=== PATIENT | female | born 1995 | race Caucasian/White ===

== ENCOUNTER 2021-06-22 16:05 | Observation (INO) | payer OTHER, SELFPAY ==
[2021-06-22 16:35] VITALS: RESP 18; TEMP 36.6
[2021-06-22 16:36] VITALS: BP 121/74; PULSE 100
--- NOTE | 2021-06-22 16:46 | OBADM ---
This patient, Mor Dia, admitted to the OB room [facility] Post [facility] for observation. Patient/family oriented to hospital policies and general routines including ID bracelet, bed and alarms, visiting hours, pain management, procedures, bathroom and other care routines, personal items, smoking policy, room service/diet, and visiting hours. Patient/Family are encouraged to report perceived risks to care and to ask questions if they do not understand what they are told or what they should do.
[2021-06-22 16:50] VITALS: BMI 32.0
--- NOTE | 2021-07-09 21:46 | PM.OBTRLD ---
OB - Triage/Final Diagnosis Visit Information Comments/Additional reasons for admission: I have assessed the risk for this patient, Mor Dia, and determined that she would benefit from observation care. Final Diagnosis (1) False labor: Code(s): O47.9 - False labor, unspecified Status: Acute
== END 2021-06-22 17:53 | disposition home or self-care (01) ==
PROVIDERS: Admitting Provider Obstetrics & Gynecology; Visit Provider Obstetrics & Gynecology
DX: O47.03 False labor before 37 completed weeks of gestation, third trimester (principal); Z3A.32 32 weeks gestation of pregnancy
CPT/HCPCS: 84112; G0378; G0379

== ENCOUNTER 2021-06-28 16:40 | Observation (INO) | payer OTHER, SELFPAY ==
[2021-06-28] VITALS (39 sets, daily range): BP systolic 104–121; BP diastolic 57–73; PULSE 39–141; RESP 16; TEMP 36.4; O2SAT 80–100; BMI 35.3
--- NOTE | ~2021-06-28 | XR_ITS ---
EXAMINATION: XR chest 1V portable INDICATION: Shortness of breath and fever TECHNIQUE: Portable AP chest at 1712 hours COMPARISON: None available FINDINGS: The lung volumes are low. There are minimal airspace opacities of the mid and lower lung zo lionel. No pleural effusion or pneumothorax is identified. The cardiomediastinal silhouette is normal. IMPRESSION: 1. Minimal airspace opacities of the mid and lower lung zones, consistent with atelectasis versus pne umonia. Reviewed, dictated and finalized at location [facility]PR[facility] IMPRESSION: 1. Minimal airspace opacities of the mid and lower lung zones, consistent with atelectasis versus pneumonia.
[2021-06-28 17:34] LABS: Basophils Percent Auto 0.4 % (0.2-1.2); Eosinophils Percent Auto 0.1 % (0-4.4); Hematocrit 29.6 % (37.0-47.0); Immature Granulocyte Absolute 0.02 K/mm3 (0.00-0.031); Immature Granulocyte Percent A 0.3 % (0-0.5); Immature Platelet Fraction Pct 7.3 % (0.9-11.2); Lymphocytes Absolute Auto 0.76 K/mm3 (0.9-3.2); Lymphocytes Percent Auto 10.9 % (18.3-44.2); Mean Corpuscular HGB Conc 33.8 g/dl (32-36); Mean Corpuscular Hemoglobin 31.3 pg (26-34); Mean Corpuscular Volume 92.8 fl (80-100); Mean Platelet Volume 11.7 fl (7.4-10.4); Monocytes Absolute Auto 0.7 K/mm3 (0.1-0.6); Monocytes Percent Auto 9.5 % (2.6-8.5); Neutrophils Absolute Auto 5.5 K/mm3 (1.3-6.7); Neutrophils Percent Auto 78.8 % (45.5-73.1); Platelet Count Result 148 k/mm3 (150-375); Red Blood Count 3.19 M/mm3 (4.2-5.4); Red Cell Distribution Width 13.1 % (11.5-14.5)
[2021-06-28] MEDS: LACTATED RINGERS 1,000 ML 125 ML IV CONT (17:40)
--- NOTE | 2021-06-28 18:55 | PC.NURSE ---
1819--Report given to Dr. Read. DC orders given.
[2021-06-28 19:16] LABS: Influenza A QL RT-PCR Negative (Negative); Influenza B QL RT-PCR Negative (Negative); SARS-CoV-2 RNA PCR Positive
--- NOTE | 2021-07-01 18:08 | PM.OBTRLD ---
OB - Triage/Final Diagnosis Visit Information Comments/Additional reasons for admission: I have assessed the risk for this patient, Mor Dia, and determined that she would benefit from observation care. Evaluation Laboratory results: Laboratory Tests 06/28/21 06/28/21 17:15 17:16 WBC 7.0 RBC 3.19 L Hgb 10.0 L Hct 29.6 L MCV 92.8 MCH 31.3 MCHC 33.8 RDW 13.1 Plt Count 148 L MPV 11.7 H Immature Gran % (Auto) 0.3 Neut % (Auto) 78.8 H Lymph % (Auto) 10.9 L Briscoe % (Auto) 9.5 H Eos % (Auto) 0.1 Baso % (Auto) 0.4 Lymph # (Auto) 0.76 L [place]iscoe # (Auto) 0.7 H Eos # (Auto) 0.0 Baso # (Auto) 0.0 Abs Immat Gran (auto) 0.02 Absolute Neuts (auto) 5.5 Absolute Nucleated RBC 0.0 Nucleated RBC % 0.0 % Immature Plt Fraction 7.3 Influenza A (RT-PCR) Negative Influenza B (RT-PCR) Negative SARS-CoV-2 RNA (RT-PCR) Positive A Final Diagnosis (1) SOB (shortness of breath): Code(s): R06.02 - Shortness of breath Status: Acute
== END 2021-06-28 19:50 | disposition home or self-care (01) ==
PROVIDERS: Advanced Practice Midwife; Admitting Provider Obstetrics & Gynecology; Visit Provider Obstetrics & Gynecology
DX: O26.893 Other specified pregnancy related conditions, third trimester (principal); R06.02 Shortness of breath; Z3A.33 33 weeks gestation of pregnancy
CPT/HCPCS: 36415; 71045; 85025; 85055; 87502; C9803; G0378; G0379; J7120; U0003; U0005

== ENCOUNTER 2021-08-02 22:32 | Outpatient (CLI) | payer OTHER, SELFPAY | END 2021-08-02 23:25 | disposition home or self-care (01) | LOC: ANHOBOP 23:15 | PROVIDERS: PCP Advanced Practice Midwife; Visit Provider Obstetrics & Gynecology | DX: O41.8X90 Other specified disorders of amniotic fluid and membranes, unspecified trimester, not applicable or unspecified (principal) | CPT/HCPCS: 59025; 84112 ==

== ENCOUNTER 2021-08-05 04:44 | Inpatient (IN) | payer OTHER, SELFPAY ==
[2021-08-05] VITALS (109 sets, daily range): BP systolic 85–129; BP diastolic 35–103; PULSE 64–132; RESP 18–20; TEMP 36.1–37.5; O2SAT 96–100; BMI 33.4
--- OUTSIDE RECORDS SUMMARY | 2021-08-05 04:50 | XMS_ITS | Encounter Summary ---
:1995 Author Care Team Providers Name Role Phone Charly Schmitt Primary Care Provider [phone] Reason for Visit OB visit 28W1D / GLUCOSE TODAY Assessment and Plan 1. Routine care Discussion Note: None recorded.Patient educational handouts: No information available. Plan of Care Reminders Provider Appointments None ? ? recorded. Lab None ? ? recorded. Referral None ? ? recorded. Procedures None ? ? recorded. Surgeries None ? ? recorded. Imaging None ? ? recorded. Medications Name Start Date ? ? albuterol sulfate HFA 90 mcg/actuation aerosol inhaler ? INHALE 2 PUFFS BY MOUTH EVERY 6 HOURS NEEDED omeprazole 20 mg capsule,delayed release ? TAKE 1 TABLET BY MOUTH EVERY DAY NEEDED ? Prilosec OTC 20 mg tablet,delayed release ? Take 1 tablet every day by oral route as needed. Medications Administered None recorded. Vitals Height Weight BMI Blood Pressure 5 ft 6 in 197 lbs 31.8 kg/m2 123/83 mm[Hg] Results Lab Results None recorded. Allergies Code Code System Name Reaction Severity Onset 8395 RxNorm Codeine Vomiting Moderate ?
--- OUTSIDE RECORDS SUMMARY | 2021-08-05 04:50 | XMS_ITS | Encounter Summary ---
:1995 Author Care Team Providers Name Role Phone Charly Schmitt Primary Care Provider [phone] Reason for Visit OB visit 39wks Assessment and Plan 1. Routine care Discussion [...] BMI Blood Pressure 5 ft 6 in 207 lbs 33.4 kg/m2 122/78 mm[Hg] Results Lab Results None recorded. Allergies Code Code System Name Reaction Severity Onset 7924 RxNorm Codeine Vomiting Moderate ?
--- OUTSIDE RECORDS SUMMARY | 2021-08-05 04:50 | XMS_ITS | Encounter Summary ---
:1995 Author Care Team Providers Name Role Phone Charly Schmitt Primary Care Provider [phone] Reason for Visit OB visit 30w2d Assessment and Plan 1. Routine care Discussion [...] BMI Blood Pressure 5 ft 6 in 198 lbs 32 kg/m2 118/76 mm[Hg] Results Lab Results None recorded. Allergies Code Code System Name Reaction Severity Onset 0720 RxNorm Codeine Vomiting Moderate ?
--- OUTSIDE RECORDS SUMMARY | 2021-08-05 04:50 | XMS_ITS ---
:1995 Author Care Team Providers Name Role Phone LUCIA GREEN Primary Care Provider [phone] Allergies Code Code System Name Reaction Severity Status Onset 2670 RxNorm Codeine Vomiting Moderate Active ? Shellfish Anaphylaxis Severe Active ? Containing Products Medications Name Status Start Date Stop Date ? ? albuterol sulfate HFA 90 mcg/actuation aerosol inhaler Active ? Not available INHALE 2 PUFFS BY MOUTH EVERY 6 HOURS NEEDED amoxicillin 500 mg capsule Completed ? 04/17 TAKE ONE CAPSULE BY MOUTH TWICE DAILY FOR 10 DAYS azithromycin 250 mg tablet Completed ? 07/27 azithromycin 500 mg tablet Completed ? 04/17 TK 1 T PO D clonazepam 1 mg tablet Completed ? TAKE 1 TABLET BY MOUTH EVERY DAY NEEDED cyclobenzaprine 10 mg tablet Completed ? 05/2021 TAKE 1 TABLET BY MOUTH UP TO THREE TIMES DAILY FOR MUSCLE SPASM dexamethasone 6 mg tablet Completed ? 2020 TK 1 T PO D dextroamphetamine-amphetamine 10 mg tablet Completed ? 04/17/2021 TAKE 1 TABLET BY MOUTH TWICE DAILY lamotrigine 150 mg tablet Completed ? 2020 TAKE 1 TABLET BY MOUTH EVERY DAY AT BEDTIME lamotrigine 25 mg tablet Completed ? metoclopramide 10 mg tablet Completed ? 04/06 TAKE 1 TABLET BY MOUTH FOUR TIMES DAILY NEEDED FOR NAUSEA nitrofurantoin monohydrate/macrocrystals 100 mg capsule Complete d ? 04/17/2021 TAKE 1 CAPSULE BY MOUTH TWICE DAILY FOR 7 DAYS
--- OUTSIDE RECORDS SUMMARY | 2021-08-05 04:50 | XMS_ITS | Encounter Summary ---
:1995 Author Care Team Providers Name Role Phone Charly Schmitt Primary Care Provider [phone] Reason for Visit OB visit 37w6d Assessment and Plan 1. Routine care Discussion [...] BMI Blood Pressure 5 ft 6 in 206 lbs 33.2 kg/m2 111/73 mm[Hg] Results Lab Results None recorded. Allergies Code Code System Name Reaction Severity Onset 8097 RxNorm Codeine Vomiting Moderate ?
--- OUTSIDE RECORDS SUMMARY | 2021-08-05 04:50 | XMS_ITS | Encounter Summary ---
:1995 Author Care Team Providers Name Role Phone Charly Schmitt Primary Care Provider [phone] Reason for Visit OB visit 33W2D Assessment and Plan 1. Routine care Discussion [...] BMI Blood Pressure 5 ft 6 in 200 lbs 32.3 kg/m2 111/77 mm[Hg] Results Lab Results None recorded. Allergies Code Code System Name Reaction Severity Onset 0632 RxNorm Codeine Vomiting Moderate ?
--- OUTSIDE RECORDS SUMMARY | 2021-08-05 04:50 | XMS_ITS | Encounter Summary ---
:1995 Author Care Team Providers Name Role Phone Charly Schmitt Primary Care Provider [phone] Reason for Visit None recorded. Assessment and Plan 1. Small for gestational age fet us ? US, obstetric, follow-up Discussion Note: None recorded.Patient educational handouts: No information available. Plan of Care Reminders Provider Appointments None ? ? recorded. Lab None ? ? recorded. Referral None ? ? recorded. Procedures None ? ? recorded. Surgeries None ? ? recorded. Imaging US, 06/25/2021 [facility], Follow-up Medications Name Start Date ? ? albuterol sulfate HFA 90 mcg/actuation aerosol inhaler ? INHALE 2 PUFFS BY MOUTH EVERY 6 HOURS NEEDED omeprazole 20 mg capsule,delayed release ? TAKE 1 TABLET BY MOUTH EVERY DAY NEEDED ? Prilosec OTC 20 mg tablet,delayed release ? Take 1 tablet every day by oral route as needed. Medications Administered None recorded. Vitals None recorded. Results Lab Results None recorded. Allergies Code Code System Name Reaction Severity Onset 1400 RxNorm Codeine Vomiting Moderate ?
--- OUTSIDE RECORDS SUMMARY | 2021-08-05 04:50 | XMS_ITS | Encounter Summary ---
:1995 Author Care Team Providers Name Role Phone Charly Schmitt Primary Care Provider [phone] Reason for Visit OB visit 36w2d / GBS today Assessment and Plan 1. Routine care Discussion [...] BMI Blood Pressure 5 ft 6 in 202 lbs 32.6 kg/m2 119/72 mm[Hg] Results Lab Results None recorded. Allergies Code Code System Name Reaction Severity Onset 2972 RxNorm Codeine Vomiting Moderate ?
--- OUTSIDE RECORDS SUMMARY | 2021-08-05 04:50 | XMS_ITS | Encounter Summary ---
:1995 Author Care Team Providers Name Role Phone Charly Schmitt Primary Care Provider [phone] Reason for Visit None recorded. Assessment and Plan 1. Pre-existing maternal disease complicating ? US, obstetric, follow-up Discussion Note: None recorded.Patient educational handouts: No information available. Plan of Care Reminders Provider Appointments None ? ? recorded. Lab None ? ? recorded. Referral None ? ? recorded. Procedures None ? ? recorded. Surgeries None ? ? recorded. Imaging US, 07/16/2021 [facility], Follow-up Medications Name Start Date ? [...] Code Code System Name Reaction Severity Onset 2373 RxNorm Codeine Vomiting Moderate ?
--- NOTE | 2021-08-05 05:05 | LDADM ---
This patient, Mor Dia, was admitted to Labor/Delivery/Recovery 107 on 08/05/21 at 04:44. Plans for labor, pain management and were discussed with patient. Patient/family oriented to hospital policies and general routines including ID bracelet, bed and alarms, visiting hours, pain management, procedures, bathroom and other care routines, personal items, smoking policy, room service/diet and guest tray routines, security routines, and visiting hours. Patient/Family are encouraged to report perceived risks to care and to ask questions if they do not understand what they are told or what they should do. See [facility] for further documentation.
[2021-08-05 05:49] LABS: Basophils Percent Auto 0.2 % (0.2-1.2); Eosinophils Absolute Auto 0.2 K/mm3 (0-0.3); Eosinophils Percent Auto 1.8 % (0-4.4); Hematocrit 30.2 % (37.0-47.0); Hemoglobin 9.9 g/dL (12.0-15.0); Immature Granulocyte Absolute 0.05 K/mm3 (0.00-0.031); Immature Granulocyte Percent A 0.6 % (0-0.5); Lymphocytes Absolute Auto 2.85 K/mm3 (0.9-3.2); Lymphocytes Percent Auto 32.9 % (18.3-44.2); Mean Corpuscular HGB Conc 32.8 g/dl (32-36); Mean Corpuscular Hemoglobin 30.5 pg (26-34); Mean Corpuscular Volume 92.9 fl (80-100); Mean Platelet Volume 11.5 fl (7.4-10.4); Monocytes Absolute Auto 0.7 K/mm3 (0.1-0.6); Monocytes Percent Auto 8.5 % (2.6-8.5); Neutrophils Absolute Auto 4.8 K/mm3 (1.3-6.7); Platelet Count Result 188 k/mm3 (150-375); Red Blood Count 3.25 M/mm3 (4.2-5.4); Red Cell Distribution Width 13.1 % (11.5-14.5); White Blood Count 8.7 K/mm3 (4.5-10.0)
[2021-08-05] MEDS: LACTATED RINGERS 1,000 ML 125 ML IV CONT ×2 (06:00→18:00)
[2021-08-05] MEDS: OXYTOCIN 30 UNITS/NS 500 ML 30 UNITS/500 ML BAG IV CONT (06:30)
--- NOTE | 2021-08-05 07:29 | WPDOBADMIT ---
Obstetrics - Admit Note Admission Note: record reviewed. No pertinent additions to the history and/or any subsequent changes in the physical findings that are not consistent with the expected course of the were found.IOL, hx 4th degree laceration, unable to AROM due to pt discomfort Additions to the history and/or subsequent changes in the physical findings follow. None.
[2021-08-05 09:25] LABS: Rapid Plasma Reagin Non-Reactive (NonReactive)
--- NOTE | 2021-08-05 12:55 | PM.OBPNLAB ---
Pain Control Date/time seen: 08/05/21 12:55 Doing well VSS Contractions regular FHR category 1 Cervix 2/thick/-2 AROM moderate amount of clear odorless fluid Anticipate
--- NOTE | 2021-08-05 12:56 | PM.IMHP ---
H&P: HPI History of Present Illness Date/Time: 08/05/21 12:56 Induction of labor Chief Complaint: Induction of labor Review of Systems Review of Systems: All systems reviewed & are unremarkable except as noted in HPI and below Constitutional: Constitutional: Reports as per HPI and Reports no additional constitutional complaints Eyes: Eyes: Reports as per HPI ENT: Reports system reviewed and no additional complaints, except as documented Cardiovascular: Cardiovascular: Reports as per HPI Respiratory: Respiratory: Reports as per HPI Gastrointestinal: Gastrointestinal: Reports as per HPI Genitourinary: Genitourinary: Reports no additional female genitourinary complaints Musculoskeletal: Musculoskeletal: Reports no additional musculoskeletal complaints Integumentary/Breasts: Skin/Breast: Reports system reviewed and no additional complaints, except as docu Neurologic: Reports system reviewed and no additional complaints, except as documented Psychiatric: Psychiatric: Reports no additional psychiatric complaints Endocrine: Endocrine: Reports no additional endocrine complaints Hematologic/Lymphatic: Hematologic/Lymphatic: Reports no additional hematologic/lymphatic complaints Allergic/Immunologic: Allergic/Immunologic: Reports no additional allergic/immunologic complaints [facility] Family History Family History Grandparent Hypertension Diabetes mellitus Father Hypertension Diabetes mellitus Grandparent Anxiety and depression Mother Anxiety and depression Hypothyroid Sibling Anxiety Social History Social History Smoking status: Current every day smoker Tobacco type: e-cigarettes/vaping Second hand tobacco smoke exposure: No Substance use: never Spiritual care concerns: No Meds Home Medications and Allergies Home Medications Medication Instructions Recorded Confirmed Type docusate sodium [Stool Softener] 100 mg PO DAILY PRN 06/22/21 06/22/21 History ferrous sulfate 325 mg PO Q3D 06/22/21 06/22/21 History vit-iron fum-folic ac 1 tablet PO DAILY 06/22/21 06/22/21 History Allergies Allergy/AdvReac Type Severity Reaction Status Date / Time shellfish derived Allergy Swelling Verified 07/27/21 14:32 of Lip/Tongue/Throat codeine AdvReac Vomiting Verified 07/27/21 14:32 Vital Signs Vital Signs - 24 hr 08/05/21 05:27 08/05/21 05:29 08/05/21 05:30 Temperature 98.9 F Pulse Rate 87 111 H Respiratory Rate Blood Pressure 114/67 103/72 Pulse Oximetry 08/05/21 05:45 08/05/21 06:00 08/05/21 06:15 Temperature Pulse Rate 103 H 86 108 H Respiratory Rate Blood Pressure 103/65 105/65 107/72 Pulse Oximetry 08/05/21 06:30 08/05/21 06:45 08/05/21 07:00 Temperature Pulse Rate 109 H 91 89 Respiratory Rate Blood Pressure 100/62 102/67 103/62 Pulse Oximetry 08/05/21 07:15 08/05/21 08:16 08/05/21 08:42 Temperature 97 F L Pulse Rate 84 82 Respiratory Rate 18 Blood Pressure 93/61 L 110/64 Pulse Oximetry 08/05/21 09:52 08/05/21 10:31 08/05/21 10:35 Temperature Pulse Rate 90 72 86 Respiratory Rate Blood Pressure 105/66 117/76 124/83 Pulse Oximetry 100 08/05/21 10:38 08/05/21 10:39 08/05/21 10:40 Temperature Pulse Rate 99 87 93 Respiratory Rate Blood Pressure 122/79 125/72 121/68 Pulse Oximetry 99 08/05/21 10:42 08/05/21 10:44 08/05/21 10:45 Temperature Pulse Rate 83 103 H Respiratory Rate Blood Pressure 114/63 129/103 H Pulse Oximetry 100 08/05/21 10:46 08/05/21 10:47 08/05/21 10:48 Temperature Pulse Rate 81 96 Respiratory Rate Blood Pressure 115/66 128/95 H Pulse Oximetry 96 98 08/05/21 10:50 08/05/21 10:51 08/05/21 10:53 Temperature Pulse Rate 70 94 84 Respiratory Rate Blood Pressure 104/54 L 85/49 L 96/65 L Pulse Oximetry 10
[2021-08-06] VITALS (13 sets, daily range): BP systolic 94–135; BP diastolic 45–83; PULSE 78–104; RESP 18; TEMP 36.4–36.8; O2SAT 98–100
--- NOTE | 2021-08-06 00:36 | PM.OBPRVD ---
OB - Delivery Note Procedure Delivery date: 08/06/21 Procedure: Induction method: Per Pitocin Protocol Delivery monitor: External FHT, External Uterine and Internal Uterine Route of delivery: Episiotomy description: None Laceration Description: Perineal - 2nd Degree Delivery repair: vicryl Quantitative Blood Loss (ml): 204 Anesthesia type: Local Narrative: . Head and shoulder delivered per CNM. The rest of baby delivered with dad assistance. Cord gasses collected and handed off to staff. Baby Date of : 08/06/21 Time of : 23:40 Weeks of gestation at delivery: 39 Weight (pounds): 8 Weight (ounces): 6 presentation: vertex position: Right Occiput Anterior Placenta delivery description: Spontaneous Cord Vessel Description: 3 Vessels score one minute: 8 score five minutes: 9
[2021-08-06] MEDS: IBUPROFEN 600 MG TABLET PO ×2 (02:20→17:19)
[2021-08-06] MEDS: OXYTOCIN 30 UNITS/NS 500 ML 30 UNITS/500 ML BAG 999 UNITS IV CONT (02:22)
[2021-08-06] MEDS: LIDOCAINE HCL 1% LOCAL INJ 10 ML VIAL ×3 (02:54→02:55)
[2021-08-06] MEDS: LIDOCAINE HCL 1% LOCAL INJ 10 ML VIAL 20 ML (02:55)
[2021-08-06] MEDS: BENZOCAINE 20% AER SPR (*SP) 56 GM CAN 1 SPRAY TOPICAL ×2 (03:00→17:19)
[2021-08-06] MEDS: LANOLIN (LANSINOH) 7.5 GM CREAM 1 APPLIC TOPICAL (03:00)
[2021-08-06] MEDS: WITCH HAZEL 40 PADS 1 PAD TOPICAL ×2 (03:00→17:19)
--- NOTE | 2021-08-06 07:53 | P.PNOB_ITS ---
OB - PN: Subj Subjective Date/time seen: 08/06/21 07:53 Patient comments: other (Doing great overall but does still have some hip pain. This has been present off and on for 2 months.) baby status: doing well OB - PN: Obj Data Labs CBC & Chem 7: 08/05/21 05:22 Labs: Laboratory Results - last 24 hr 08/05/21 05:22 RPR Non-reactive OB - PN A/P Plan day: 1 Plan: routine care Time Spent With Patient Time: Total time spent is greater than 50% in coordination of care (as thalia fournier) at patient's floor/unit and/or counseling patient: Time with patient: less than 15 minutes Review of Systems Review of Systems: All systems reviewed & are unremarkable except as noted in HPI and below Exam Narrative: Fundus firm and vaginal flow controlled. No lower ext redness, warmth, or edema. Negative homans. Const: General: comfortable Chest: Breast/axilla inspection: normal inspection of the breasts Resp: Effort & Inspection: normal respiratory effort Cardio: Rate: regular rate GI: GI Palp: Yes Soft to palpation Psych: Appearance: grossly normal Affect: normal affect Attitude: coop erative Thought content: Yes Normal thought content present Judgement: Good judgement present (Psych)
[2021-08-06] MEDS: KETOROLAC 30 MG/ML VIAL (*BKC) IM (08:56)
[2021-08-06] MEDS: POLYSACCHARIDE IRON COMPLEX 150 MG CAPSULE PO ×2 (08:59→17:20)
[2021-08-06] MEDS: DOCUSATE SODIUM 100 MG CAPSULE PO ×2 (08:59→17:21)
[2021-08-06] MEDS: MULTIVIT/MIN/PREN/FOL AC/IRON TABLET 1 TAB PO (09:00)
--- NOTE | 2021-08-06 11:25 | WPDANLDPN2 ---
Anes-Prog Note L&D Date/Time: 08/06/21 11:25 Comfortable throughout: labor and delivery Neuraxial method: epidural Epidural/Spinal procedure site: clean & non-tender Neuro status: Neuro function grossly intact. Cardiovascular status: normal Respiratory status: normal Airway patency: baseline Mental status: baseline Post-Op hydration status: normal Vital Signs: Last Vital Signs Temp 36.6 C 08/06/21 03:17 Pulse 88 08/06/21 03:17 Resp 18 08/06/21 03:17 BP 115/64 08/06/21 03:17 Pulse Ox 98 08/06/21 03:17 Pain score (VAS): 0 I/O: Intake & Output 08/05/21 08/06/21 08/06/21 23:59 07:59 15:59 Intake Total 500 Output Total 264 Balance 236 Post-procedural complaints: none Patient feedback: Patient satisfied with anesthetic care.
[2021-08-06] MEDS: oxyCODONE/ACETAMINOPHEN (*CRX) 5-325 MG TABLET 1 TABLET PO (12:16)
--- NOTE | 2021-08-06 15:18 | PC.NURSE ---
[id number] Introduction were made and consulted with patient to assess needs related to . Mother led conversation with her experience with feeding baby so far. Mother works well with her infant and states she is well without discomfort. Reviewed good handwashing when working with , breast, nipples and how to protect the nipples with a deep latch. Encouraged understanding the benefits of skin to skin, responding to feeding cues for feeding on demand, frequencies of feeding 8-12 times in 24 hours (approximately 2-3 hours), duration of feedings, milk production, intake/output feeding sheet and signs of adequate intake. Discussed stimulating infant with skin to skin, hand expressing colostrum, touch and talking to infant to encourage eating at the breast. Reviewed positioning and alignment, supporting breast, off-centered (asymmetrical latch) and leading with the chin with big open wide gape. Resources used to facilitate learning were used from the mom and baby guide. Mother voiced understanding responding to feeding cues, may need to stimulating approximately 2-3 hours from the start of the last feeding, calling for assistance if the infant does not latch or there discomfort . Reported to primary RN.
[2021-08-06] MEDS: ACETAMINOPHEN 325 MG TABLET 650 MG PO (21:07)
[2021-08-07] MEDS: IBUPROFEN 600 MG TABLET PO ×2 (00:17→09:36)
[2021-08-07] MEDS: ACETAMINOPHEN 325 MG TABLET 650 MG PO (04:05)
[2021-08-07 04:17] LABS: Hematocrit 28.1 % (37.0-47.0)
--- NOTE | 2021-08-07 07:16 | PM.OBPNVD ---
OB - PN: Subj Subjective Date/time seen: 08/07/21 07:16 Patient comments: no complaints baby status: doing well OB - PN: Obj Data Labs CBC & Chem 7: 08/07/21 04:10 Labs: Laboratory Results - last 24 hr 08/07/21 04:10 Hgb 9.0 L Hct 28.1 L OB - PN A/P Plan day: 2 Plan: routine care and discharge home Time Spent With Patient Time: Total time spent is greater than 50% in coordination of care (as documented) at patient's floor/unit and/or counseling patient: Review of Systems Review of Systems: All systems reviewed & are unremarkable except as noted in HPI and below Exam Const: General: cooperative, healthy appearing and comfortable
--- NOTE | 2021-08-07 07:17 | PM.OBDSVD ---
DS: Admitting Diagnosis Discharge Date 08/07/21 Admitting Diagnosis iol OB - DS: Summary OB Procedures : None OB Procedures Intrapartum: Spontaneous Vag Delivery OB Procedures: : None Time Spent with Patient Time attestation: Total time spent providing and/or coordinating discharge services: DS: Data Data Completed and Pending Labs on day of discharge: Labs from last 24 hours 08/07/21 04:10 Hgb 9.0 L Hct 28.1 L Discharge Plan Discharge Attending physician on discharge: Liz Haskins Discharging Clinician: Nessa Mercado Patient Disposition: Home, Self-Care Activity: pelvic rest Diet: regular Patient Instructions: Antibiotic Form Stand Alone Forms: General Discharge Information Follow-up/Referrals: Deborah Connelly CNM [Primary Care Provider] - 4 Weeks Discharge Medications: Continued ferrous sulfate 325 mg (65 mg iron) Tablet 325 mg PO Q3D RF: 0 docusate sodium [Stool Softener] 100 mg Capsule 100 mg PO DAILY PRN (Reason: Constipation) RF: 0 vit-iron fum-folic ac 60-0.8 mg Tablet 1 tablet PO DAILY RF: 0 Date of admission: 08/05/21 04:44 Primary Care Provider: Deborah Connelly Admitting Provider: Liz Haskins Attending physician on admission: Liz Haskins Condition: Stable
[2021-08-07 08:00] VITALS: PULSE 70; RESP 18; O2SAT 100
[2021-08-07 08:25] VITALS: BP 116/74; PULSE 70; RESP 18; TEMP 36.9; O2SAT 100
[2021-08-07] MEDS: DOCUSATE SODIUM 100 MG CAPSULE PO (09:35)
[2021-08-07] MEDS: POLYSACCHARIDE IRON COMPLEX 150 MG CAPSULE PO (09:35)
[2021-08-07] MEDS: MULTIVIT/MIN/PREN/FOL AC/IRON TABLET 1 TAB PO (09:35)
--- NOTE | 2021-08-07 10:57 | PC.NURSE ---
Patient was given the opportunity to view the discharge video Mother & Baby Care, The First Two Weeks and to ask questions. Patient declined viewing the video and has been given the mother/baby guide for home reference.
--- NOTE | 2021-08-07 13:04 | PC.NURSE ---
8536 - 1526 Introductions were made and mother led the conversation with regards to her experience feeding her baby. Reminded parents to use good handwashing to prevent infection. has had appropriate feedings in the past 24 hours and meets the outcomes for weight, output and jaundice. Mother states she feels confident to continue effectively her infant at home. Mother chose to bottle feed in the night. Reminded teaching of production of human milk, transition of milk, signs of adequate intake and engorgement prevention/relief and when to call the care provider using the mom and baby guide. Optimal latch visualized and mother presented her knowledge of . Reviewed medications mother is taking with information provided by [facility], community resources and outpatient services as listed in the mom and baby guide/[facility] website. Reinforced watching for feeding cues for responsive feeding and how to stimulate infant to initiate feeding three hours from the start of the last feeding. Mother voiced understanding of information shared. Reported to primary RN.
== END 2021-08-07 13:14 | disposition home or self-care (01) | DRG 560 ==
LOC: ANHLDR 04:48 → ANHOB2 08-06 02:45
PROVIDERS: Admitting Provider Obstetrics & Gynecology; PCP Advanced Practice Midwife; Visit Provider Obstetrics & Gynecology
DX: O99.892 Other specified diseases and conditions complicating childbirth (principal); Z37.0 Single live birth; Z3A.39 39 weeks gestation of pregnancy; Z87.59 Personal history of other complications of pregnancy, childbirth and the puerperium; O70.1 Second degree perineal laceration during delivery
CPT/HCPCS: 36415; 85014; 85018; 85025; 86592; 86850; 86900; 86901; 97110; 97161; A9270; J1885; J2590; J2795; J7120